=== PATIENT | male | born 2000 | race African-American/Black ===

== ENCOUNTER 2022-05-29 03:58 | Emergency (ER) | payer OTHER, SELFPAY ==
[2022-05-29 03:59] VITALS: BP 146/60; PULSE 81; RESP 18; TEMP 35.8; O2SAT 100; BMI 29.7
--- NOTE | 2022-05-29 04:13 | EX.ED.DYSGE1 ---
HPI History of Present Illness Chief Complaint: Wound Detail of Chief Complaint: Lump on right chest Informant: patient Narrative Narrative: Patient presents secondary to feeling a lump on the right side of his chest tonight. He states it is somewhat sore. He had not noticed it prior to tonight. He also complains of a white spot on his right tonsil. He does have some slight anterior throat pain. No fever or cough. PFSH PFSH Medical History no medical history no medical history Home Medications NK 05/29/22 [History Last Taken Unknown] Allergy/AdvReac Type Severity Reaction Status Date / Time No Known Allergies Allergy Verified 05/29/22 04:06 Social History Smoking Status: Light Smoker (<10/day) ROS ROS ED Constitutional Constitutional ED: Denies chills or fever(s) Eyes Eyes: Denies change in vision or discharge from eye(s) ENT ENT ED: Reports sore throat; Denies discharge from eye(s) or rhinorrhea Cardiovascular Cardiovascular: Reports chest pain; Denies palpitations Respiratory/Chest Respiratory/Chest: Denies cough or dyspnea Gastrointestinal Gastrointestinal: Denies abdominal pain Musculoskeletal Musculoskeletal: Denies back pain or extremity pain Integumentary Denies Abrasions or rash Neurologic Neurologic: Denies headache(s) or weakness Allergic/Immunologic Allergic/Immunologic ED: Denies lip swelling or urticaria EXAM Physical Exam Const Vital Signs: 05/29/22 03:59 Temperature 96.5 F L Temperature Source Temporal Pulse Rate 81 Respiratory Rate 18 Blood Pressure 146/60 H Blood Pressure Mean 88 Pulse Ox 100 Oxygen Delivery Method Room Air Positive well nourished and well developed General Appearance ED: well developed HEENT Reports normocephalic and head/scalp atraumatic HEENT Narrative: Posterior pharyngeal drainage. Single exudate noted on the right tonsil. Eyes PERRL and EOMs intact bilaterally Neck supple Chest Wall inspection of chest normal and palpation of chest normal Chest Narrative: No palpable masses or abnormalities noted on the chest wall. Patient does have prominence of his ribs on the right side where he is feeling the lump, however has matching rib contour on the left. No skin changes noted. Resp normal respiratory effort and clear to auscultation bilaterally Cardio regular rate and regular rhythm GI normal to inspection, nondistended, normoactive bowel sounds Palpation: soft Extremity normal to inspection Neuro oriented x3 and no sensory deficits noted Sensorium / Orientation: alert Motor Exam: strength 5/5 throughout Psych mental status grossly normal Skin no rashes or lesions noted MDM MDM MDM Narrative Medical decision making narrative: 2 view chest x-ray obtained to evaluate cardiac silhouette, ribs, lungs. Rapid strep obtained. Radiography Diagnostic Testing: Clinical Impression(s) from Imaging Studies Chest X-Ray 05/29/22 04:20 IMPRESSION: No radiographic evidence of acute cardiopulmonary disease. Electronically Signed: Gaurav Larson MD at 4:42 EDT , Treatment and Re-Evaluation :: 2 view chest x-ray per my interpretation reveals no acute abnormalities. Radiology interpretation is reviewed and agrees. Rapid strep is negative. It will be sent for culture. Test results are discussed with the patient. He is reassured with this. He will continue supportive care. Discharge Plan Triage Chief Complaint: Wound ED Provider: Heena Paris Dx/Rx/DC Orders Clinical Impression: Pharyngitis Instructions: ED Pharyngitis, Viral Prescriptions: No Action NK Primary Care Provider: Care Physician,No Primary Referrals: Love Card DO [Med Staff - Active Staff] - 1-2 Weeks NOT,DEFINED [Non-Staff] - Disposition Disposition: Home, Self Care
--- NOTE | 2022-05-29 04:20 | RAD_ITS ---
EXAM: XR CHEST, 2 VIEWS CLINICAL INDICATION: pain TECHNIQUE: Frontal and lateral views of the chest. This report was created using combionic report generation technology. COMPARISON: None. FINDINGS: LUNGS AND PLEURAL SPACES: Unremarkable. No consolidation or edema. No pneumothorax. No effusion. HEART: Unremarkable. Cardiac silhouette not enlarged. Normal pulmonary vasculature. MEDIASTINUM: Central airways and mediastinal contour are unremarkable. Trachea is midline. No mediastinal widening. BONES/JOINTS: Unremarkable. No acute osseous abnormality. SOFT TISSUES: Unremarkable. RAD/Chest PA and Lateral IMPRESSION: No radiographic evidence of acute cardiopulmonary disease. Electronically Signed: Gaurav Larson MD at 4:42 EDT ,
[2022-05-29 05:12] VITALS: RESP 16
== END 2022-05-29 05:12 | disposition home or self-care (01) ==
PROVIDERS: Emergency Provider Emergency Medicine; Visit Provider Emergency Medicine
DX: J02.9 Acute pharyngitis, unspecified (principal); F17.200 Nicotine dependence, unspecified, uncomplicated
CPT/HCPCS: 71046; 87880; 99282

== ENCOUNTER 2022-07-30 12:58 | Emergency (ER) | payer OTHER, SELFPAY ==
[2022-07-30 12:59] VITALS: BP 133/73; PULSE 67; RESP 18; TEMP 36.4; O2SAT 100
--- NOTE | 2022-07-30 13:21 | EKG12_ITS ---
Test Reason : Blood Pressure : / mmHG Vent. Rate : 065 BPM Atrial Rate : 065 BPM P-R Int : 148 ms QRS Dur : 090 ms QT Int : 388 ms P-R-T Axes : 039 060 051 degrees QTc Int : 403 ms Normal sinus rhythm Normal ECG Confirmed by RADHA MOTTA MD ([id number]), book editor JOSE MCCRACKEN ([id number]) on 07/31/2022 1:25:17 PM Referred By: MC Confirmed By:RADHA MOTTA MD
--- NOTE | 2022-07-30 13:27 | EDS_ITS ---
HPI <REY Slaughter - Last Filed: 07/30/22 14:47> History of Present Illness Chief Complaint: Complaint Narrative Narrative: Patient is a 21-year-old male with no past medical history who is currently a student at the [employer] who presents to the emergency department for multiple complaints that been lasting for multiple months. Patient states that he goes back and forth between [place]. He has been here for the last 5 months. Patient states that he does not have a PCP here, he states that he has pressure behind his eyes, he has intermittent back pain, intermittent abdominal cramping, sometimes his urine stream is not as strong, and sometimes he feels short of breath with intermittent chest pain. Patient states that all of the symptoms come and go. He also states that he is tired however he did just wake up and come to the emergency department. He denies any acute issues at this time, he denies any weakness to his upper or lower extremities. He denies any fever or chills. He states that he wants STD testing, his last sexual encounter was greater than 3 months ago however he states he does want the testing done. He denies any symptoms noted. He denies any penile drainage. Denies any chest pain or shortness of breath at this time. PFSH <REY Slaughter - Last Filed: 07/30/22 14:47> [facility] Medical History no medical history Home Medications NK 05/29/22 [History Last Taken Unknown] Allergy/AdvReac Type Severity Reaction Status Date / Time No Known Allergies Allergy Verified 05/29/22 04:06 Surgical History no surgical history Social History Smoking Status: Light Smoker (<10/day) ROS <REY Slaughter - Last Filed: 07/30/22 14:47> ROS ED ROS Narrative Constitutional: Negative for fever, chills, weight loss, weakness Eyes: Negative for vision loss, vision change, double vision. Positive for bilateral eye pain ENT: Negative for any sore throat, ear pain, congestion Cardiovascular: Negative for any chest pain, tightness, palpitations Respiratory: Negative for any cough, sputum production, hemoptysis, dyspnea on exertion, orthopnea. Positive for intermittent dyspnea Gastrointestinal: Negative for any abdominal pain, nausea, vomiting, diarrhea, constipation, blood in stool, blood in vomit : Negative for any urinary frequency, retention, blood in urine. Positive for intermittent dysuria Muscle skeletal: Negative for any muscle joint pain, stiffness, myalgias, arthralgias, neck pain. Positive remittent back pain Neurological: Negative for any headache, syncope, numbness or tingling, dizziness Skin: Negative for any rashes, lumps, itching, abrasions, lacerations Psychiatric: Negative for any depression, anxiety, stress, suicidal ideation, homicidal ideation Hematologic: Negative for any easy bruising, excessive bruising, easy bleeding Allergies: Negative for any eczema, hives, rash EXAM <REY Slaughter - Last Filed: 07/30/22 14:47> Physical Exam Narrative Exam Narrative: Vital signs reviewed. I spoke with the patient at length, patient did get slightly frustrated with all of my questions however I did mention to the patient that I am having a difficult time narrowing down what brought him to the emergency department. The patient is exhibiting no signs of any toxicity, he is looking well and in position of comfort. HEET: Head normocephalic atraumatic, TMs clear bilaterally. Posterior pharynx is clear, moist mucous membranes. Nares clear bilaterally. Neck: Supple with no lymphadenopathy or tenderness. No signs of meningismus, negative jolt sign. Cardiac: Regular rate and rhythm no murmurs gallops or rubs, equal peripheral pulses bilaterally. Respiratory: Lungs clear to auscultation bilaterally. No chest tenderness. Abdomen: Soft, nontender, nondistended. No abdominal bruit or pulsatile masses. No hepatosplenomegaly Extremities: No peripheral edema, no signs of gross trauma or deformity. Active full range of motion of all extremities. Neuro: Cranial nerves II through XII intact, no focal neurological deficits. Skin: Clean dry and intact with no rash, purpura, petechiae, vesicles or pustules. Backs/flank: No CVA tenderness, no midline spinal tenderness, no deformity. Psych: Normal mood and affect. No SI, HI or acute psychosis. Const Vital Signs: 07/30/22 12:59 Temperature 97.5 F L Temperature Source Temporal Pulse Rate 67 Respiratory Rate 18 Blood Pressure 133/73 H Blood Pressure Mean 93 Pulse Ox 100 <Dr. Shekhar Russell MD - Last Filed: 07/30/22 16:31> Physical Exam Const Vital Signs: 07/30/22 12:59 Temperature 97.5 F L Temperature Source Temporal Pulse Rate 67 Respiratory Rate 18 Blood Pressure 133/73 H Blood Pressure Mean 93 Pulse Ox 100 [facility] <REY Slaughter - Last Filed: 07/30/22 14:47> [facility] Lab Data Labs: Laboratory Results - last 24 hr 07/30/22 07/30/22 14:05 14:05 Urine Color Yellow Urine Clarity Clear Urine pH 6.0 Ur Specific [place] 1.020 Urine Protein 15 H Urine Glucose (UA) Normal Urine Ketones 15 H Urine Occult Blood Negative Urine Nitrite Negative Urine Bilirubin Negative Urine Urobilinogen Normal Ur Leukocyte Esterase Negative Urine RBC 0 SEEN Urine WBC 0 SEEN Ur Squamous Epith Cells 0-5 SEEN Urine Bacteria 0 SEEN Urine Mucus 3+ Chlam trachomat DNA PCR Negative N.gonorrhoeae DNA (PCR) Negative Treatment and Re-Evaluation :: All radiologic examinations were read, reviewed by the emergency department attending. From these reads, a plan of care will be put in place. Patient appears well, patient appears nontoxic, vital signs are stable. It was difficult to narrow down why the patient was here in the emergency department today. Patient had multiple symptoms that he was here for today. Patient was ordered an EKG, urinalysis as well as GC/committee a, chest x-ray. I did offer a rectal exam however he refused. Patient's chest x-ray was not completed secondary to him refusing. He also states that he had somewhere to be at around 2 PM. He asked if he could call him with results. I spoke with him about possible syphilis, however he left prior towards being discharged. Patient be diagnosed as an elopement. It was difficult to communicate with this patient, and a very difficult time understanding why he was here and what I could do to help at this time. Patient left prior to to discharge or any results. <Dr. Shekhar Russell MD - Last Filed: 07/30/22 16:31> [facility] Lab Data Attestation: I reviewed the patient's lab results. Labs: Laboratory Results - last 24 hr 07/30/22 07/30/22 14:05 14:05 Urine Color Yellow Urine Clarity Clear Urine pH 6.0 Ur Specific [place] 1.020 Urine Protein 15 H Urine Glucose (UA) Normal Urine Ketones 15 H Urine Occult Blood Negative Urine Nitrite Negative Urine Bilirubin Negative Urine Urobilinogen Normal Ur Leukocyte Esterase Negative Urine RBC 0 SEEN Urine WBC 0 SEEN Ur Squamous Epith Cells 0-5 SEEN Urine Bacteria 0 SEEN Urine Mucus 3+ Chlam trachomat DNA PCR Negative N.gonorrhoeae DNA (PCR) Negative Radiography Chest X-Ray - ED: - (2-view CXR ordered for dyspnea but pt refused) EKG Initial EKG: Attestation: I personally reviewed and interpreted this EKG as follows: Interpretation: Sinus Rhythm and No Acute Injury Pattern Comments: nml intervals. nml ekg. Treatment and Re-Evaluation Comments:: Seen and evaluated independently and in conjunction with nurse practitioner. Agree with notes above unless documented otherwise. I discussed this patient with the TALEND DEVELOPER, he has multiple symptoms that have been there for months, some of them intermittent, and he is concerned about an STD so I would also add syphilis screening, but when I went to see the patient he had already eloped after his blood was drawn. Discharge Plan Triage Chief Complaint: Complaint ED Midlevel Provider: Nile Bush ED Provider: Shekhar Russell Dx/Rx/DC Orders Clinical Impression: Headache, Encounter for medical assessment, Multiple somatic complaints Prescriptions: No Action NK Primary Care Provider: Care Physician,No Primary Referrals: Care Physician,No Primary [Primary Care Provider] - Disposition Disposition: Elopement Discharge Date/Time: 07/30/22 14:16
--- NOTE | 2022-07-30 13:38 | NURSING ---
NO OLD EKGS
--- NOTE | 2022-07-30 14:13 | ED.RN ---
PT ASKING RN IF HE NEEDS TO STAY FOR RESULTS BECAUSE HE HAS SOMEWHERE TO BE AT 2PM RN EXPLAINED THAT THE UA WILL BE BACK WITHIN 45 MINUTES BUT THE GC/C WILL TAKE A COUPLE DAYS TO COME BACK. RN ALSO EXPLAINED THAT PATIENT HAS AN ORDER FOR A CHEST XRAY D/T C/O SOB AND CP AND ASKED IF HE STILL WANTED TO GET THIS DONE. PT ASKED IF IT WOULD BE ON THE BILL AND RN EXPLAINED IT WOULD AND PT SAID HE RECENTLY HAD ONE AND HE DOESN'T NEED IT DONE. RN EXPLAINED TO PATIENT IF HE WANTS TEST RESULTS FOR UA HE NEEDS TO WAIT OR GO THROUGH MEDICAL RECORDS OR PATIENT PORTAL. PT LEFT AT THIS TIME. ALEX DRY TRANSFER MAN - NOTIFIED
[2022-07-30 14:14] LABS: Bacteria 0 SEEN /hpf (None Seen); Red Blood Cells-Urine 0 SEEN /hpf (0-5); White Blood Cells 0 SEEN /hpf (0-5)
[2022-07-30 14:16] LABS: Color, Urine Yellow (Yellow); Glucose, Dipstick Normal (Normal); Ketone-Dipstick 15 mg/dl (Negative); Leukocyte Esterase-Dipstick Negative /ul (Negative); Nitrite-Dipstick Negative (Negative); Occult Blood-Urine Negative /ul (Negative); Protein-Dipstick 15 mg/dl (Negative); Urine Bilirubin Dipstick Negative (Negative); Urine Clarity Clear (Clear); Urine Urobilinogen Normal (Normal)
[2022-07-30 14:25] LABS: Mucous, Urine 3+ /hpf (<or=2+); Squamous Epithelial Cells - UA 0-5 SEEN /hpf (0-5)
[2022-07-30 16:08] LABS: Chlamydia Trachomatis by PCR Negative (Negative); Neisserai gonorrhoeae by PCR Negative (Negative); Probe Check PASS; Sample Adequacy Control PASS; Specimen Processing Control PASS
== END 2022-07-30 14:16 | disposition left against medical advice (07) ==
PROVIDERS: Nurse Practitioner; Emergency Provider Emergency Medicine; Visit Provider Emergency Medicine
DX: R51.9 Headache, unspecified (principal); F17.200 Nicotine dependence, unspecified, uncomplicated
CPT/HCPCS: 81001; 87491; 87591; 93005; 99281; 99282